=== PATIENT | male | born 1955 | race Two or more races ===

== ENCOUNTER 2020-04-28 16:12 | Emergency (ER) | payer OTHER ==
[~2020-04-28] VITALS: Ht 160 cm; Wt 62.0 kg
[2020-04-28 17:52] VITALS: BP 129/77
== END 2020-04-28 17:53 | disposition home or self-care (01) ==
LOC: ER 16:12
DX: J06.9 Acute upper respiratory infection, unspecified (principal); R05 Cough
CPT/HCPCS: 99282